=== PATIENT | male | born 1950 | race Caucasian/White ===

== ENCOUNTER 2024-09-27 12:26 | Day surgery (SDC) | payer MEDICARE, SELFPAY ==
--- OUTSIDE RECORDS SUMMARY | 2024-08-27 13:25 | XMS_ITS ---
Author Organization [facility] Address [address] [place] [address] Care Team Providers Care Nutrition Therapist Name Role Phone RealLela taylor Primary Care Provider Jarvis Toro [phone] Allergies No Known Allergies REASON FOR VISIT Patient presents today for a COLON SCREENING Medications Medication SIG (Take, Route, Fr equency, Duration) Notes Start Date End Date Status Lisinopril 10 MG TAKE 1 TABLET BY JUNIOR TH EVERY DAY Oral for 90 Days Active Problems Problem Type SNOMED Code ICD Code Onset Dates Problem Status W/U Status Risk Notes Problem Colon cancer screening (Z12.11) Active confirmed Problem Preprocedural examination ([id number]) Preprocedural examination (Z01.818) Active confirmed Vital Signs Blood pressure systolic 111 mm Hg 08/11/19 25 Blood pressure diastolic 77 mm Hg 025 Height 69.75 in 08/10/2024 Weight 195 lbs 08/10/2024 BMI 28.18 kg/m2 08/10/2024 Procedures Procedure Date Ordered Date Performed Result Body Sit e COLONOSCOPY 08/10/2024 N/A Encounters Encounter Location Date Provider Diagnosis [facility] [address] [place] [id number] 08/10/2024 Jarvis Martinez Colon cancer screeni ng Z12.11 and Preprocedural examination Z01.818 Assessments Encounter Date Diagnosis (ICD Code) Assessment Notes Treatment Notes Treatment Clinical Notes Section Notes 08/10/2024 Colon cancer screening (ICD-10 - Z12.11) Overall, Alexey appears quite well. Given his age, excellent clinical appearance, and his last colonoscopy being 10 years ago, I did recommend a follow-up colonoscopy for further screening purposes. We did review the rationale for this in regard to colon cancer prevention. Full consent has been obtained from him for this, including risks of bleeding and perforation. The procedure will be done with monitored anesthesia care. Alexey was comfortable with this plan. Thank you again for allowing me to participate in Alexey's care. I shall continue to keep you advised of his progress. 08/10/2024 Preprocedural examination (ICD-10 - Z01.818) Overall, Alexey appears quite well. Given his age, excellent clinical appearance, and his last colonoscopy being 10 years ago, I did recommend a follow-up colonoscopy for further screening purposes. We did review the rationale for this in regard to colon cancer prevention. Full consent has been obtained from him for this, including risks of bleeding and perforation. The procedure will be done with monitored anesthesia care. Alexey was comfortable with this plan. Thank you again for allowing me to participate in Alexey's care. I shall continue to keep you advised of his progress. Plan Of Treatment Pending Test Test Name Order Date COLONOSCOPY 08/10/2024 Next Appt Details Follow Up: prn, Reason: Provider Name:Jarvis Martinez , 09/27/2024 02:40:00 PM, [address] [place] [address], [phone], Progress Notes * ALEXEY GILDOB:1950 ( 73 yo M)Acc No.[id number]:08/10/2024 Progress Notes Patient:?ALEXEY GIL Provider:?Jarvis Martinez MD :1950???Age:73 Y???Sex:Male Vazquez e:08/10/2024 Address:[address] [place], [place] [address], [id number] Pcp:Lela Noble Subjective: * Chief Complaints: * ???Patient presents today fo r a COLON SCREENING * HPI: ???incontinence:? I saw Alexey in the office today for evaluation of colorectal cancer screening. I last saw Alexey in August of 2014, at which time he underwent a negative follow-up screening colonoscopy. He presently feels well. He enjoys a good appetite, without any significant heartburn or dysphagia. His bowel movements are been regular and without any signs of bleeding. He denies any abdominal pain, jaundice, nor unintentional weight loss. He denies any known family history of colorectal cancer. * ROS:?General/Constitutional:?Change in appetite?denies.?Chills?denies.?Fatigue?denies.?Ophthalmologic:?Comments?all negative.?ENT:?Comments?all negative.?Respiratory:?hemoptysis?denies.?Cough?denies.?Cardiovascular:?Chest pain?denies.?Orthopnea?denies.?Gastrointestinal:?Comments?See HPI for details.?Genitourinary:?Hematuria?denies.?Dysuria?denies.?Musculoskeletal:?Painful joints?denies.?Weakness?denies.?Skin:?Itching?denies.?Rash?denies.?Neurologic:?Headache?denies.?Seizures?denies.?Psychiatric:?Comments?all negative.? * Medical History:? 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 2004 * Hospitalization/Major Diagno stic Procedure:?No Hospitalization History. * Family History:?Father: dece ased.?Mother: .? No colorectal cancer. * Social History:?Tobacco Use:?Tobacco Use/Smoking?Are you a: nonsmoker.?Drugs/Alcohol:?Alcohol Screen?Points: 2, Interpretation: Negative.?Miscellaneous:?Marital status: . Occupation: Tailor/ retired. ???Nonsmoker; no sig alcohol. * Medications:?TakingLisinopri l 10 MG Tablet TAKE 1 TABLET BY MOUTH EVERY DAY Oral Taking Lisinopril 10 MG Tablet TAKE 1 TABLET BY MOUTH EVERY DAY Oral DiscontinuedMoviPrep 100 GM Solution as directed Orally as directed Medication List reviewed and reconciled with the patientDiscontinued MoviPrep 100 GM Solution as directed Orally as directed Medication List reviewed and reconciled with the patient * Allergies:?N.K.D.A.yes[Aller gies Verified] Objective: * Vitals:?Wt:195lbs, Ht: 69.75 in, BMI:28.18Index, BP:111/77mm Hg, Wt-k.45. * Examination: ???General Examination: ?GENERAL APPEARANCE:?pleasant, well nourished, well developed, in no acute distress.?EYES:?sclera non-icteric.?ORAL CAVITY:?mucosa moist.?NECK/THYROID:?no cervical lymphadenopathy, neck supple.?SKIN:?nonjaundiced, no spider angiomata.?HEART:?S1, S2 normal.?LUNGS:?clear to auscultation bilaterally.?ABDOMEN:?normal bowel sounds, no guarding or rigidity, no guarding or rigidity, no masses palpable, soft, nontender, nondistended.?EXTREMITIES:?no edema.?NEUROLOGIC:?alert and oriented.? Assessment: * Assessment: 1.?Preprocedural examination - Z01.818 (Primary)???2.?Colon cancer screening - Z12.11??? Overall, Alexey appears quite well. Given his age, excellent clinical appearance, and his last colonoscopy being 10 years ago, I did recommend a follow-up colonoscopy for further screening purposes. We did review the rationale for this in regard to colon cancer prevention. Full consent has been obtained from him for this, including risks of bleeding and perforation. The procedure will be done with monitored anesthesia care. Alexey was comfortable with this plan. Thank you again for allowing me to participate in Alexey's care. I shall continue to keep you advised of his progress. Plan: * Treatment: * Procedure Codes:?37025 DIAGN OSTIC [id number] COLORECTAL CA SCREEN DOC [id number] TOBACCO [id number] BP SCR NOT PRFRM REC REASON [id number] RCMND FLW-UP 10 YRS DOCD * Preventive Medicine:? ??Counseling:?Care goal follow-up plan:?Above Normal BMI Follow-up?Giving encouragement to exercise,?BMI management provided?Yes.? ??Screenings:?Fall Risk Screening?Fall Risk Assessment:?No falls in the past year,?Screening:?No falls in the past year,?Assessment:?Not performed, no reason specified,?Plan of Care:?Not documented, no reason specified.? * Follow Up:?prn * * Sign off status: Completed true * Provider:?Jarvis Martinez MD Date:? 025 Generated for Rachael ramires/Vinod/eTransmitting on:?08/27/2024 01:25 PM EDT History and Physical Notes * HPI (History of Present Illness) Category Sub-Category Detail Notes Category Not es incontinence I saw Alexey in the office today for evaluation of colorectal cancer screening. I last saw Alexey in August of 2014, at which time he underwent a negative follow-up screening colonoscopy. He presently feels well. He enjoys a good appetite, without any significant heartburn or dysphagia. His bowel movements are been regular and without any signs of bleeding. He denies any abdominal pain, jaundice, nor unintentional weight loss. He denies any known family history of colorectal cancer. Examination Category Sub-Category Detail Notes Category Not es General Examination GENERAL APPEARANCE: pleasant , well nourished, well developed, in no acute distress HEAD: EYES: sclera non-icteric EARS: NOSE: THROAT: NECK/THYROID: no cervical lymphade nopathy, neck supple HEART: S1, S2 normal CHEST: LUNGS: clear to auscultatio n bilaterally ABDOMEN: normal bowel sounds, no guarding or rigidity, no guarding or rigidity, no masses palpable, soft, nontender, nondistended NEUROLOGIC: alert and oriented SKIN: nonjaundiced, no spi fili angiomata EXTREMITIES: no edema PERIPHERAL PULSES: BACK: BREASTS: MUSCULOSKELETAL: MALE GENITOURINARY: LYMPH NODES: RECTAL EXAM: FEMALE GENITOURINARY: ORAL CAVITY: mucosa moist
[2024-09-27 12:46] VITALS: BMI 27.0
[2024-09-27] MEDS: Lactated Ringers 1,000 ML 80 ML IVCONT (12:48)
[2024-09-27 12:56] VITALS: BP 136/71; PULSE 86; RESP 18; TEMP 36.7; O2SAT 98
--- NOTE | 2024-09-27 13:51 | P.CONAN_ITS ---
[facility] Past Medical History Medical History Hypertension Functional capacity: independent ambulation Family History Family history of problems with anesthesia: No Surgical History Surgical History Hx of kidney donation Hx of colonoscopy History of Problems with Anesthesia: No Social History Social History Are you a primary transitional care liaison to a significant other at home: No Do you presently have visiting nurse or other home services: No Patient Tobacco Use Status: Never used Tobacco Have you been hit, kicked, punched, or otherwise hurt by someone within the past year? If so, by whom?: No Are you DNR?: No Advance Directives: No Advance Directives Information Provided: Yes Poor oral hygiene: No Meds Allergies Allergy/AdvReac Type Severity Reaction Status Date / Time No Known Allergies Allergy Verified 09/27/24 12:44 Active Medications: Current Medications Lactated Ringer's (Lr) 1,000 mls @ 80 mls/hr IVCONT .[id number] TEO Last Admin: 09/27/24 12:48 Dose: 80 mls/hr Sodium Biphosphate/Sodium Phosphate (Sodium Phosphate,Fleming-Dibasic 133 Ml Enema) 133 ml TX ONCE PRN PRN Reason: Poor Colonoscopy Prep Results Home Medications ?Medication ?Instructions ?Recorded ?Confirmed ?Last Taken ?Type lisinopril 10 mg tablet 10 mg PO DAILY 09/24/2409/0609/27/24 History Exam Height,Weight and Vital Signs: Height 5 ft 9.75 in Weight 84.64 kg Last Vital Signs Temp 98.1 F 09/27/24 12:56 Pulse 86 09/27/24 12:56 Resp 18 09/27/24 12:56 BP 136/71 09/27/24 12:56 Pulse Ox 98 09/27/24 12:56 O2 Del Method Room Air 09/27/24 12:56 Airway Mallampati Class: II TM Dist: >3cm Neck ROM: Full Heart: RRR Lungs: CTA Assessment and Plan Assessment Anesthesia Assessment: Anesthesia Plan Discussed Final Anesthetic Review Family History of Problems with Anesthesia: No History of Problems with Anesthesia: No NPO: Yes Final Preanesthetic Review: Meds/Allgs Chart Reviewed, Consent Obtained/Reviewed and Anes Risks/Benef Reviewed Patient Risk: Low Procedure Risk: Low Anesthetic Plan Anesthetic Plan: MAC: Disposition: Standard PACU
[2024-09-27 15:15] VITALS: BP 91/54; PULSE 63; RESP 16; TEMP 36.1; O2SAT 97
--- NOTE | 2024-09-27 15:15 | P.BOP_ITS ---
Brief Operative Note Date of Service: 09/27/24 Pre-op diagnosis: Screening Post-op diagnosis: other (Diverticulosis) Procedure: Colonoscopy to the cecum and TI Surgeon: Jarvis Martinez MD Anesthesia: MAC Was an New Car Make Ready Worker used for this Procedure?: No Estimated blood loss (mL): 0 Pathology: none sent Condition: stable Disposition: PACU
[2024-09-27 15:30] VITALS: BP 108/75; PULSE 64; RESP 16; TEMP 36.3; O2SAT 99
--- NOTE | 2024-09-28 01:44 | OP_ITS ---
DATE OF SERVICE: 09/27/2024 SURGEON: Jarvis Martinez MD INDICATIONS: The patient presents for evaluation of colorectal cancer screening. Full consent has been obtained from him for this, including risks of bleeding and perforation. PREOPERATIVE DIAGNOSIS: Colorectal cancer screening. POSTOPERATIVE DIAGNOSIS: PROCEDURE PERFORMED: Colonoscopy to cecum and terminal ileum. ESTIMATED BLOOD LOSS: COMPLICATIONS: ANESTHESIA: Monitored anesthesia care. ASSISTANTS: SPECIMENS: POSTOPERATIVE DIAGNOSES: Colorectal cancer screening, sigmoid diverticulosis, and internal hemorrhoids. DESCRIPTION OF PROCEDURE: The patient was placed in left lateral decubitus position. The digital rectal exam revealed no abnormalities. The Olympus video pediatric colonoscope was entered into the rectum, advanced easily to the cecum. Once in the cecum, I did identify normal-appearing cecal pouch with appendiceal orifice and a normal-appearing ileocecal valve. The terminal ileum was cannulated and appeared normal. The scope was withdrawn back into the colon. The entire cecum and ileocecal valve appeared normal. The scope was slowly withdrawn assessing all mucosal surfaces carefully. Preparation was excellent. I did not visualize any sign of polyps, colitis, nor angiodysplasia. There was a mild amount of sigmoid diverticulosis. In the rectum, scope was retroflexed visualizing internal hemorrhoids, but no other pathology. The rectal mucosa appeared normal. The scope was straightened and withdrawn from the patient. He tolerated the procedure well and was returned to the recovery area in stable condition. IMPRESSION: 1. Mild diverticulosis. 2. Internal hemorrhoids. PLAN: Given today's negative exam, 2 previously negative colonoscopies, and a negative family history of colorectal cancer, I do not think he will need any further screening colonoscopies as 10 years from now. he would be in his early 80s. As such, he will see me on a p.r.n. basis. This has been discussed with his . MD TAYLOR Freeman/[facility] / [phone] MTDLorrie
== END 2024-09-27 15:43 | disposition home or self-care (01) ==
PROVIDERS: PCP Student in an Organized Health Care Education/Training Program; Visit Provider Internal Medicine
PROC: 0DJD8ZZ Inspection of Lower Intestinal Tract, Via Natural or Artificial Opening Endoscopic (ICD-10-PCS; CPT 45378; principal; 2024-09-27 13:50)
DX: Z12.11 Encounter for screening for malignant neoplasm of colon (principal); K57.30 Diverticulosis of large intestine without perforation or abscess without bleeding; K64.8 Other hemorrhoids; I10 Essential (primary) hypertension; Z79.899 Other long term (current) drug therapy
CPT/HCPCS: G0121; J2003; J2704